=== PATIENT | male | born 1960 | race Caucasian/White ===

== ENCOUNTER 2021-04-14 13:34 | Emergency (ER) | payer MEDICARE, SELFPAY ==
--- NOTE | ~2021-04-14 | XR_ITS ---
EXAMINATION: XR foot RT min 3V DATE: 04/14/2021 14:16 INDICATION: Right foot pain, initial encounter TECHNIQUE: Dorsoplantar, lateral, and 2 oblique views of the right foot were obtained. COMPARISON: None. FINDINGS: There is an acute, traumatic, closed, oblique fracture in the distal shaft of the fifth met atarsal. The joint spaces are normal. Soft tissue swelling surrounds the fracture. No additional acut e osseous findings are evident. Posterior and plantar calcaneal enthesophytes are noted. IMPRESSION: 1. Acute fifth metatarsal shaft fracture. Reviewed, dictated and finalized at location B. [facility]
[2021-04-14 13:41] VITALS: BP 137/94; PULSE 68; RESP 16; TEMP 36.8; O2SAT 99
--- NOTE | 2021-04-14 17:01 | ED.GENADULT ---
HPI - General Adult General Chief complaint: Extremity Injury, Lower <Buck Castanon PA-C - Last Filed: 04/14/21 17:05> Stated complaint: R FOOT INJURY <SAM Roach Last Filed: 04/14/21 17:05> Time Seen by Provider: 04/14/21 13:59 <SAM Roach Last Filed: 04/14/21 17:05> Source: patient <SAM Roach Last Filed: 04/14/21 17:05> Mode of arrival: ambulatory <SAM Roach Last Filed: 04/14/21 17:05> Limitations: no limitations <SAM Roach Filed: 04/14/21 17:05> History of Present Illness HPI narrative: Patient with HIV/AIDS presents with chief complaint of pain to the right fifth metatarsal that he sustained yesterday. Patient reports that he was sitting at the table working on paperwork and was having some neuropathy to his lower extremities which is normal due to some of his HIV/AIDS medications and when he stood up he landed on the lateral aspect of his right foot. Patient reports today he noticed increased bruising across his metatarsals so he presented to the emergency department to have it evaluated. Patient denies any other injuries. Patient reports that he felt that since he was able to move his toes and may had not have been broken. However, he wanted to make sure. <Buck Castanon PA-C - Last Filed: 04/14/21 17:05> Related Data Allergies/adverse reactions: Allergies Allergy/AdvReac Type Severity Reaction Status Date / Time No Known Allergies Allergy Verified 04/14/21 14:01 <Buck Castanon PA-C - Last Filed: 04/14/21 17:05> Review of Systems Review of Systems: CONSTITUTIONAL: Denies fever, chills, or sweats. EYES: Denies visual changes, redness, or discharge. ENT: Denies rhinorrhea, congestion, sore throat, or otalgia. CARDIOVASCULAR: Denies chest pain, palpitations, or edema. RESPIRATORY: Denies cough or dyspnea. GASTROINTESTINAL: Denies abdominal pain, nausea, vomiting, or diarrhea. GENITOURINARY: Denies dysuria or hematuria. SKIN: Reports ecchymosis denies rash or itching. MUSCULOSKELETAL: Reports right foot pain denies back pain, joint pain, or myalgia. NEUROLOGIC: Denies headache, numbness, dizziness, or weakness. PSYCHIATRIC: Denies anxiety or depression. <Buck Castanon PA-C - Last Filed: 04/14/21 17:05> Exam Narrative: GENERAL: Well-appearing, well-nourished, and in no acute distress. HEAD: Normocephalic, atraumatic. EYES: PERRLA and EOMI. CHEST: Clear to auscultation. No respiratory distress. No wheezes rales or rhonchi HEART: Regular rate and rhythm. No murmur heard. Normal peripheral pulses. EXTREMITIES: Bruising across the bases of the metatarsals of the right foot. cap refill intact. Tender to palpation at the shaft and base of right 5th metatarsal with some edema. SKIN: Warm, dry, no rash. NEURO: No focal deficits. Alert and oriented x3. PSYCH: Normal mood and affect. <Buck Castanon PA-C - Last Filed: 04/14/21 17:05> Course Vital Signs Vital signs: Vital Signs Temperature 98.3 F 04/14/21 13:41 Pulse Rate 68 04/14/21 13:41 Respiratory Rate 16 04/14/21 13:41 Blood Pressure 137/94 H 04/14/21 13:41 Pulse Oximetry 99 04/14/21 13:41 Temperature 98.3 F 04/14/21 13:41 Pulse Rate 68 04/14/21 13:41 Respiratory Rate 16 04/14/21 13:41 Blood Pressure 137/94 H 04/14/21 13:41 Pulse Oximetry 99 04/14/21 13:41 <Buck Castanon PA-C - Last Filed: 04/14/21 17:05> Medical Decision Making MDM Narrative Medical decision making narrative: Patient placed in postop shoe, given crutches so that he does not weight-bear on right foot. Patient to follow-up business applications specialist for further evaluation and management of fifth metatarsal fracture. Patient does not have open fracture. Patient's in room calmly.does not verbalize any discomfort and does not appear to be in distress. Patient verbalized understanding agreement with plan denies any other questions o
== END 2021-04-14 16:04 | disposition home or self-care (01) ==
PROVIDERS: Emergency Provider General Practice
DX: S92.351A Displaced fracture of fifth metatarsal bone, right foot, initial encounter for closed fracture (principal); B20 Human immunodeficiency virus [HIV] disease; Z79.899 Other long term (current) drug therapy; W19.XXXA Unspecified fall, initial encounter
CPT/HCPCS: 73630; 99284